=== PATIENT | female | born 1975 | race Caucasian/White ===

== ENCOUNTER 2020-03-26 13:33 | Emergency (ER) | payer BC, OTHER, SELFPAY ==
[2020-03-26 13:41] VITALS: BP 113/66; PULSE 65; RESP 18; TEMP 36.9; O2SAT 100
--- NOTE | 2020-03-26 13:53 | ED.GENADULT ---
HPI - General Adult General Chief complaint: Dental/Oral Stated complaint: tooth pain Time Seen by Provider: 03/26/20 13:55 Source: patient Mode of arrival: ambulatory Limitations: no limitations History of Present Illness HPI narrative: 44-year-old female patient presents to the [facility] with complaints of dental pain. Patient states she has had this for about 2 days now. Patient states that she thinks she might of had an abscess and states that it just recently popped up. Patient denies any fevers, body aches or chills. Patient states she has been doing some warm salt water gargles for this. Patient states she is currently not able to get into her dentist. Related Data Allergies Allergy/AdvReac Type Severity Reaction Status Date / Time No Known Allergies Allergy Unverified 03/26/20 13:47 Review of Systems Review of Systems: Narrative: CONSTITUTIONAL: Denies fever, chills, or sweats. EYES: Denies visual changes, redness, or discharge. ENT: Denies rhinorrhea, congestion, sore throat, or otalgia. Positive dental pain x2 days CARDIOVASCULAR: Denies chest pain, palpitations, or edema. RESPIRATORY: Denies cough or dyspnea. GASTROINTESTINAL: Denies abdominal pain, nausea, vomiting, or diarrhea. GENITOURINARY: Denies dysuria or hematuria. SKIN: Denies rash or itching. MUSCULOSKELETAL: Denies back pain, joint pain, or myalgia. NEUROLOGIC: Denies headache, numbness, or weakness. PSYCHIATRIC: Denies anxiety or depression. PMFSH Comments At the time of my signature I agree with nursing past medical history, surgical, social, and family history. There is no relevant family history pertinent to the presenting complaint. Exam Narrative: Exam Narrative: GENERAL: Well-appearing, well-nourished, and in no acute distress. HEAD: Normocephalic, atraumatic. EYES: PERRLA and EOMI. ENT: Nares clear, no rhinorrhea or epistaxis. Mucous membranes moist. Patient does have a very small dental abscess noted to the gum right under the left front lateral incisor. There is no skin wounds or drainage noted. There is some slight erythema noted around their area. The abscess appears to be just to the gum there does not appear to be any dental caries or infected teeth noted. NECK: Supple. No lymphadenopathy CHEST: Clear to auscultation. No respiratory distress. HEART: Regular rate and rhythm. No murmur heard. Normal peripheral pulses. ABDOMEN: Soft, nontender, nondistended, normal active bowel sounds. EXTREMITIES: Normal range of motion. No edema. SKIN: Warm, dry, no rash. NEURO: No focal deficits. Alert and oriented x3. Course Vital Signs Vital signs: Vital Signs Temperature 36.9 C 03/26/20 13:41 Pulse Rate 65 03/26/20 13:41 Respiratory Rate 18 03/26/20 13:41 Blood Pressure 113/66 03/26/20 13:41 Pulse Oximetry 100 03/26/20 13:41 Temperature 36.9 C 03/26/20 13:41 Pulse Rate 65 03/26/20 13:41 Respiratory Rate 18 03/26/20 13:41 Blood Pressure 113/66 03/26/20 13:41 Pulse Oximetry 100 03/26/20 13:41 Vital signs reviewed. Medical Decision Making Differential Diagnosis Differential Diagnosis: Differential diagnosis: Dental caries, periodontal disease, avulsed tooth, tooth infections, mandibular infection, Mikie's angiana, upper tooth infection, dry socket, gingivitis, acute necrotizing ulcerative gingivitis, sialolithiasis. Vital Signs Vital Signs: Vital Signs Temperature 36.9 C 03/26/20 13:41 Pulse Rate 65 03/26/20 13:41 Respiratory Rate 18 03/26/20 13:41 Blood Pressure 113/66 03/26/20 13:41 Pulse Oximetry 100 03/26/20 13:41 Temperature 36.9 C 03/26/20 13:41 Pulse Rate 65 03/26/20 13:41 Respiratory Rate 18 03/26/20 13:41 Blood Pressure 113/66 03/26/20 13:41 Pulse Oximetry 100 03/26/20 13:41 Critical Care Time Critical Care Time Critical Care Time: No Discharge Plan Discharge Clinical Impression: Dental abscess Patient Disposition: Home, Self-Care
== END 2020-03-26 14:02 | disposition home or self-care (01) ==
PROVIDERS: Emergency Provider Nurse Practitioner Family; PCP Nurse Practitioner Family
DX: K04.7 Periapical abscess without sinus (principal)
CPT/HCPCS: 99213; G0463